=== PATIENT | male | born 1960 | race Caucasian/White ===

== ENCOUNTER 2022-09-08 11:54 | Day surgery (SDC) | payer BC ==
[~2022-09-08] VITALS: Ht 182 cm; Wt 88.5 kg
[~2022-09-08 11:54] MED LIST: AMLO-250 PO; ATOR10TA66 PO; COLC1TAB PO; HYDR12.56 PO; LOSA100T58 PO; METF-397 PO; PANT40TA52 PO
[2022-09-08] MEDS ORDERED: LACTATED RINGERS 1,000 ML IV STA (12:03)
[2022-09-08] MEDS ORDERED: HURRICAINE EXT TUBE (BENZOCAINE) XX PRN (12:15)
[2022-09-08] MEDS ORDERED: LIDOCAINE JELLY 2% 6 ML SYRINGE MM PRN (12:15)
[2022-09-08 12:19] VITALS: BP 140/76
--- NOTE | 2022-09-08 12:27 | Progress Note-Pre Operative ---
Pre-Operative Progress Note Date of Available H&P: Sep 08, 2022 Date H&P Reviewed: Sep 08, 2022 Time H&P Reviewed: 12:00 History & Physical: No changes noted Pre-Operative Diagnosis: GERD, screening o MARIFER ADHIKARI MD Sep 08, 2022 12:27
--- NOTE | 2022-09-08 12:29 | Discharge Inst-Surgical ---
D/C Lap Instructions-ONOFRE Follow Up Activity as tolerated High Fiber Diet 25g or more per day Avoid Alcohol, Caffeine, Spicy Chunky and Acid foods. Drink 64 fluid oz or more of fluids per day. Symptoms to Report: Fever over 101 degree F, Nausea/Vomiting If any problems/questions: Contact your physician or go to Emergency Room MARIFER ADHIKARI MD Sep 08, 2022 12:29
[2022-09-08] MEDS ORDERED: ONDANSETRON 4 MG/2 ML (SDV) Z0FRAN IVP PRN (12:30)
[2022-09-08] MEDS ORDERED: ONDANSETRON 4 MG (ZOFRAN) ORAL DISSOLVE TAB PO PRN (12:30)
[2022-09-08] MEDS ORDERED: LIDOCAINE JELLY 2% 6 ML SYRINGE ONE (13:26)
[2022-09-08] MEDS ORDERED: PROPOFOL INJECTION 50 ML IV ONE ×2 (13:54→14:32)
[2022-09-08] MEDS ORDERED: MIDAZOLAM 2 MG/2 ML (VERSED) VIAL ONE (13:55)
[2022-09-08 14:35] VITALS: BP 128/70
[2022-09-08 14:40] VITALS: BP_SYST 130; BP_SYST 140; BP_DIAS 74; BP_DIAS 76
--- NOTE | 2022-09-08 14:49 | Anesthesia-General Post-Op ---
MAC Patient Condition Mental Status/LOC: Same as Preop Cardiovascular: Satisfactory Nausea/Vomiting: Absent Respiratory: Satisfactory Pain: Controlled Complications: Absent Post Op Complications Complications None Follow Up Care/Instructions Patient Instructions None needed. Anesthesiology Discharge Order Discharge Order Patient is doing well, no complaints, stable vital signs, no apparent adverse anesthesia problems. No complications reported per nursing. SHWETA CANAS CRNA Sep 08, 2022 14:49
[2022-09-08] MEDS ORDERED: SUCR1TAB36 PO (14:56)
--- NOTE | 2022-09-08 15:20 | Progress Note-Post Operative ---
Post-Operative Progess Note Surgeon (s)/Police [employer] Patrol Park Officer (s) Surgeon MARIFER ADHIKARI MD Police Or Patrol Park Officer: none Pre-Operative Diagnosis GERD, screening colo Post-Operative Diagnosis reflux esophagitis(grade B0, mild dist esoph stricture, small-mod type 2 paraesophageal hernia(2.5cm), moderate gastritis. chronic stage 2 ext and int hemorrhoids, mild sigmoid diverticulosis. Procedure & Operative Findings Date of Procedure 09/08/22 Procedure Performed/Findings EGD with bx and balloon dilatation. colonoscopy. Anesthesia Type mac Estimated Blood Loss Estimated blood loss (mL): minimal Specimens/Packing Specimens Removed ge jxn, antrum MARIFER ADHIKARI MD Sep 08, 2022 15:20
[2022-09-08 15:25] VITALS: BP 130/74
--- NOTE | 2022-09-08 19:47 | OPERATIVE REPORT ---
DATE OF SERVICE: 09/08/2022 ATTENDING BIKE MECHANIC: RODERICK Navarro PREOPERATIVE DIAGNOSES: Gastroesophageal reflux disease, screening colonoscopy. POSTOPERATIVE DIAGNOSES: Reflux esophagitis, Loíza grade B; mild distal esophageal stricture; unkad-ty-ncjzidsk size hiatal hernia approximately 2.5 cm in size; jina-kk-khtlltlu gastritis; chronic stage II external and internal hemorrhoids; rmuz-xn-tojqwchm sigmoid diverticulosis. PROCEDURES: EGD with biopsy and balloon dilatation and colonoscopy. SURGEON: Marifer Adhikari MD ANESTHESIA: Monitored anesthesia care. ESTIMATED BLOOD LOSS: Minimal. FINDINGS: Reflux esophagitis, Loíza grade B; mild distal esophageal stricture; zrkda-ly-jrotzbpy size hiatal hernia approximately 2.5 cm in size; hpzm-ne-idoyduok gastritis; chronic stage II external and internal hemorrhoids; kvgh-us-lnrqfahy sigmoid diverticulosis. DISPOSITION: The patient tolerated the procedure well. INDICATIONS: The patient is a 62-year-old male who was referred over to us for issues encompassing worsening reflux as well as screening colonoscopy. He has had heartburn and reflux for years and started out taking botz-wcu-mwdylip medications including Nexium. During that timeframe, he inadvertently discontinued the Nexium for approximately 1 week and states that he developed significant substernal burning pain. He then restarted the Nexium, however, states that this was less effective than what he had felt before. He also reports that at times, he will have some mild regurgitation. Of note, during the endoscopy, he did cough throughout the whole procedure, which may indicate some level of pharyngitis from nocturnal reflux and regurgitation. The patient is also in need of a screening colonoscopy. He has not had a colonoscopy up to this point in his life. He does not report any major issues with diarrhea, nor constipation as well as no red blood per rectum, nor any dark tarry stools. He also does not report any family history of colon cancer. DESCRIPTION OF PROCEDURE: The patient was brought to the endoscopy suite and laid in the left lateral decubitus position. After adequate IV pain and sedative medications and monitored anesthesia care, the mouthpiece was applied. The endoscope was placed in the mouth, visualizing the pharynx and hypopharyngeal region. Vocal cords, epiglottis and vallecula identified and appeared to be normal. The endoscope was then gently intubated into the esophageal opening and esophagus insufflated. The endoscope was then advanced through the first, second and third portions of esophagus at the gastroesophageal junction; a reflux esophagitis, Loíza grade B identified as well as mild distal esophageal stricture. A biopsy was taken of the GE junction with forceps with visualization of good hemostasis. The endoscope was then advanced in the stomach and endoscope retroflexed visualizing a drljl-bd-bvrfmvvl size hiatal hernia approximately 2.5 cm in size. This appeared to be a type 2 classic paraesophageal hernia. There was dmae-lu-cqnjeafr gastritis. No formal ulcerations, polyps or any neoplasms and a biopsy was taken of the antrum to rule out H. pylori with visualization of good hemostasis. The endoscope was then advanced through the pylorus and first and second portion of the duodenum, which appeared normal with no distal obstructions. The balloon was then placed into the stomach and pulled back to the area of the stricture. We then proceeded in a graded stepwise fashion from 2, 4, then eventually 6 atmospheres of pressure with 60 seconds in between each level and once we had 6 atmospheres of pressure or 20 mm in luminal diameter, there was moderate resistance and we left this in place for approximately 120 seconds. The balloon was desufflated and removed with visualization of good hemostasis as well as no mucosal tears. The endoscope was then slowly withdrawn while taking a second look and suctioning of residual air with no additional findings. A digital rectal examination was performed, which revealed chronic stage II external and internal hemorrhoids, not actively edematous, nor inflamed and no bleeding. Normal sphincter tone was felt and there were no palpable masses. Prostate gland was palpable and appeared normal. The endoscope was then intubated into the anus, rectum gently insufflated. The endoscope was then advanced through the valves of Vick in the rectum with no polyps or any neoplasms identified. Through the sigmoid colon, tpbe-ns-kxolqsiv sigmoid diverticulosis was identified. The endoscope was then advanced to the remainder of the descending, transverse and ascending colon to the cecum, which appeared normal with no polyps or any neoplasms identified. The endoscope was then slowly withdrawn while taking a second look and suctioning of residual air with no additional findings. The patient tolerated the procedure well. We will recommend the necessary lifestyle and dietary accommodation including small and more frequent meals, avoidance of eating at night as well as head elevation while lying supine. He also needs to avoid caffeinated beverages and spicy, greasy and acidic foods. He is already on 2 PPI acid reducers with Nexium as well as Protonix added more recently and we will have him continue this regimen; however, we will also add Carafate 1 gram q.i.d. for the next 2 weeks. This gentleman sounds to have had chronic reflux esophagitis as well as symptomatic regurgitation due to a sswyt-sw-vrzrrnpm size hiatal hernia. If he continues to have symptoms, he may be a candidate for hiatal hernia repair; however, before proceeding with this, we would proceed with an esophageal manometry study to rule out any esophageal dysmotility disorders. We will have him follow up in the office in approximately 2 weeks. Job ID: [id number] DocumentID: [id number] Dictated Date: 09/08/2022 14:47:52 Polymerization Helper Date: 09/08/2022 19:45:00 Dictated By: MARIFER ADHIKARI MD
== END 2022-09-08 15:25 | disposition home or self-care (01) ==
LOC: ENDO 11:54
PROVIDERS: ATTEND Surgery
DX: Z12.11 Encounter for screening for malignant neoplasm of colon (principal); K57.30 Diverticulosis of large intestine without perforation or abscess without bleeding; K64.1 Second degree hemorrhoids; K64.4 Residual hemorrhoidal skin tags; K21.00 Gastro-esophageal reflux disease with esophagitis, without bleeding; K22.2 Esophageal obstruction; K44.9 Diaphragmatic hernia without obstruction or gangrene; K29.70 Gastritis, unspecified, without bleeding; E11.9 Type 2 diabetes mellitus without complications; Z79.899 Other long term (current) drug therapy; Z79.84 Long term (current) use of oral hypoglycemic drugs